=== PATIENT | female | born 1950 | race Hispanic/Latino ===

== ENCOUNTER 2019-04-21 10:41 | Inpatient (IN) | payer MEDICARE ==
[~2019-04-21] VITALS: Ht 157.5 cm; Wt 64.5 kg
[2019-04-21 11:04] LABS: BASOPHILS % (AUTO) 0.2 % (0.0-5.0); EOSINOPHILS % (AUTO) 0.1 % (0.0-8.0); HEMATOCRIT 45.4 % (36-48); LYMPHOCYTES % (AUTO) 9.1 % (21.0-51.0); MEAN CORPUSCULAR HEMOGLOBIN 29.5 pg (27.0-33.0); MEAN CORPUSCULAR HGB CONC 35.1 g/dL (32.0-36.0); MEAN CORPUSCULAR VOLUME 83.9 fL (79-99); MONOCYTES % (AUTO) 8.6 % (3.0-13.0); PLATELET COUNT (AUTO) 219 K/uL (130-400); RED BLOOD CELL COUNT(AUTO) 5.41 MIL/uL (4.00-5.50); RED CELL DISTRIBUTION WIDTH 13.3 % (11.0-15.5); WHITE BLOOD COUNT (AUTO) 6.6 K/uL (4.8-10.8)
[2019-04-21] MEDS ORDERED: ONDANSETRON HCL 4 MG/2 ML VIAL ONE ×2 (11:07→23:00)
[2019-04-21 11:11] LABS: AMYLASE 29 U/L (25-115)
[2019-04-21 11:22] LABS: ALANINE AMINOTRANSFERASE 16 U/L (12-78); ALBUMIN 3.7 g/dL (3.5-5.0); ASPARTATE AMINOTRANSFERASE 22 U/L (10-37); BILIRUBIN,TOTAL 0.7 mg/dL (0.2-1.0); CARBON DIOXIDE 15 mmol/L (21-32); CHLORIDE 89 mmol/L (101-111); CREATINE KINASE, TOTAL 95 U/L (21-232); CREATININE 3.9 mg/dL (0.5-1.5); GLOMERULAR FILTR. RATE CALC 12 mL/min (>60); GLUCOSE,RANDOM 176 mg/dL (70-105); POTASSIUM 3.3 mmol/L (3.5-5.1); SODIUM SERUM 129 mmol/L (136-145); TOTAL PROTEIN, SERUM 8.9 g/dL (6.0-8.3); UREA NITROGEN, BLOOD 60 mg/dL (7-18)
[2019-04-21 11:23] LABS: LIPASE < 50 U/L (114-286)
[2019-04-21] MEDS ORDERED: HYOSCYAMINE SULFATE 0.125 MG TAB.SUBL SL ONE (11:26)
[2019-04-21] MEDS ORDERED: SODIUM CHLORIDE 0.9% 1000ML 1,000 ML IV ONE ×2 (11:26→12:00)
[2019-04-21 11:33] LABS: INR 0.9 (0.85-1.15); PARTIAL THROMBOPLASTIN TIME 30.1 SEC (26.3-35.5); PROTHROMBIN TIME 9.5 SEC (9.6-11.6)
[2019-04-21 12:23] LABS: BAND NEUTROPHILS % (MANUAL) 14 % (0-2); LYMPHOCYTES % (MANUAL) 17 % (22-44); MAN.DIFF COMMENT-IMPRESSION MANUAL DIFFERENTIAL; MONOCYTES % (MANUAL) 14 % (2-9); PLATELET MORPHOLOGY COMMENT ADEQUATE; SEGMENTED NEUTROPHILS % 55 % (40-70)
[2019-04-21] MEDS ORDERED: POTASSIUM CHLORIDE 20 MEQ ERTAB PO ONE (12:41)
[2019-04-21] MEDS ORDERED: LEVOFLOXACIN 500 MG/D5W 100 ML 100 ML ONE (13:17)
[2019-04-21] MEDS ORDERED: METRONIDAZOLE 500MG/100ML BAG 100 ML ONE (13:17)
[2019-04-21] MEDS: SODIUM CHLORIDE 0.9% 1000ML 1,000 ML IV SCH ×2 (14:15→22:15)
[2019-04-21] MEDS ORDERED: LOPERAMIDE HCL 2 MG CAP PO ONE (14:33)
[2019-04-21] MEDS ORDERED: MORPHINE SULFATE 2 MG/ML 1ML SYG ONE (18:52)
[2019-04-21] MEDS ORDERED: MORPHINE SULFATE 2 MG/ML 1ML SYG IVP PRN (19:15)
[2019-04-21 22:13] VITALS: BP 117/68
[2019-04-21] MEDS: METRONIDAZOLE 500MG/100ML BAG 100 ML IVPB SCH (23:04)
[2019-04-21 23:45] VITALS: BP 117/75
[2019-04-22] MEDS ORDERED: ACETAMINOPHEN 325 MG TAB ONE (02:58)
[2019-04-22 04:00] VITALS: BP 119/69
[2019-04-22 05:31] LABS: MEAN CORPUSCULAR HEMOGLOBIN 29.4 pg (27.0-33.0); MEAN CORPUSCULAR VOLUME 83.9 fL (79-99); PLATELET COUNT (AUTO) 174 K/uL (130-400); RED BLOOD CELL COUNT(AUTO) 4.65 MIL/uL (4.00-5.50); RED CELL DISTRIBUTION WIDTH 12.9 % (11.0-15.5); WHITE BLOOD COUNT (AUTO) 6.7 K/uL (4.8-10.8)
[2019-04-22 05:42] LABS: CREATININE 2.4 mg/dL (0.5-1.5)
[2019-04-22 05:43] LABS: POTASSIUM 2.6 mmol/L (3.5-5.1)
--- NOTE | 2019-04-22 05:54 | NUR ---
DR. JAIMES CALLED TO HIS CELLPHONE TO [facility] VALUES FOR POTASSIUM AND SODIUM NO ANSWER
[2019-04-22] MEDS ORDERED: POTASSIUM CHLORIDE 10% ELIXIR 20 MEQ/15 ML UDCUP PO PRN (06:00)
[2019-04-22] MEDS: SODIUM CHLORIDE 0.9% 1000ML 1,000 ML IV SCH ×3 (06:15→20:25)
[2019-04-22] MEDS: ONDANSETRON HCL 4 MG/2 ML VIAL IVP PRN ×2 (06:31→13:52)
[2019-04-22] MEDS: LIDOCAINE HCL-MPF 1% 2ML VIAL IV PRN ×2 (06:31→17:05)
[2019-04-22] MEDS: METRONIDAZOLE 500MG/100ML BAG 100 ML IVPB SCH ×4 (06:31→13:50)
[2019-04-22] MEDS: POTASSIUM CHLORIDE 20MEQ/100ML 100 ML IV PRN ×3 (06:31→17:04)
[2019-04-22 08:00] VITALS: BP 128/69
[2019-04-22 11:39] VITALS: BP 117/74
--- NOTE | 2019-04-22 11:54 | NUR ---
DCP CM met with pt discussed dc plans. Pt is semi-independent prior to admission, lives at home with spouse. Has a shower chair and cane. Denies any other equipments/services. Pt feels safe to go back home, spouse able to assist with transportation and needs as necessary. DC plan to home once stable. CM to cont to follow up. Addendum: 04/22/19 at 1155 by DARSHAN OROSCO LVN CM Amended: Links added.
[2019-04-22 16:17] VITALS: BP 129/65
[2019-04-22 19:05] VITALS: BP 125/63
[2019-04-22] MEDS ORDERED: ONDANSETRON HCL 4 MG/2 ML VIAL IVP PRN (19:15)
[2019-04-22] MEDS ORDERED: FAMOTIDINE/PF 20 MG/2 ML VIAL IV SCH (21:00)
[2019-04-22] MEDS ORDERED: DIPHENOXYLATE HCL/ATROPINE 2.5/0.025 MG TAB PO SCH (21:00)
[2019-04-22] MEDS ORDERED: ZOLPIDEM TARTRATE 5 MG TAB ONE (22:35)
[2019-04-22] MEDS: ZOLPIDEM TARTRATE 5 MG TAB PO SCH (22:37)
[2019-04-22 23:33] VITALS: BP 133/68
[2019-04-23 03:10] VITALS: BP 115/73
[2019-04-23 05:07] LABS: HEMATOCRIT 40.4 % (36-48); MEAN CORPUSCULAR HEMOGLOBIN 29.2 pg (27.0-33.0); MEAN CORPUSCULAR HGB CONC 34.9 g/dL (32.0-36.0); MEAN CORPUSCULAR VOLUME 83.8 fL (79-99); PLATELET COUNT (AUTO) 216 K/uL (130-400); RED BLOOD CELL COUNT(AUTO) 4.82 MIL/uL (4.00-5.50); RED CELL DISTRIBUTION WIDTH 13.4 % (11.0-15.5); WHITE BLOOD COUNT (AUTO) 7.4 K/uL (4.8-10.8)
[2019-04-23 05:34] LABS: POTASSIUM 2.7 mmol/L (3.5-5.1)
[2019-04-23] MEDS: LIDOCAINE HCL-MPF 1% 2ML VIAL IV PRN ×2 (05:50→11:07)
[2019-04-23] MEDS: POTASSIUM CHLORIDE 20 MEQ ERTAB PO PRN ×4 (05:50→13:48)
[2019-04-23] MEDS: POTASSIUM CHLORIDE 20MEQ/100ML 100 ML IV PRN ×2 (05:50→11:08)
[2019-04-23] MEDS: SODIUM CHLORIDE 0.9% 1000ML 1,000 ML IV SCH ×3 (05:58→20:08)
--- NOTE | 2019-04-23 06:04 | NUR ---
Paged Dr. Tavarez regarding positive blood culture of gram negative rods. Pending call back
[2019-04-23 07:50] VITALS: BP 117/72
[2019-04-23] MEDS: FAMOTIDINE/PF 20 MG/2 ML VIAL IV SCH (08:39)
[2019-04-23] MEDS: DIPHENOXYLATE HCL/ATROPINE 2.5/0.025 MG TAB PO SCH ×4 (08:45→20:08)
[2019-04-23] MEDS ORDERED: LEVOFLOXACIN 250 MG/D5W 50ML 50 ML IVPB SCH (09:00)
[2019-04-23 12:01] VITALS: BP 122/74
[2019-04-23] MEDS: CEFTRIAXONE SODIUM 1 GM IVP SCH (14:40)
[2019-04-23 16:40] VITALS: BP 115/53
[2019-04-23 19:10] VITALS: BP 115/70
[2019-04-23] MEDS: ZOLPIDEM TARTRATE 5 MG TAB PO SCH (20:08)
[2019-04-23 23:35] VITALS: BP 124/70
[2019-04-24 03:10] VITALS: BP 120/63
[2019-04-24 05:02] LABS: MEAN CORPUSCULAR HEMOGLOBIN 29.1 pg (27.0-33.0); MEAN CORPUSCULAR HGB CONC 34.6 g/dL (32.0-36.0); MEAN CORPUSCULAR VOLUME 84.3 fL (79-99); PLATELET COUNT (AUTO) 180 K/uL (130-400); RED BLOOD CELL COUNT(AUTO) 4.27 MIL/uL (4.00-5.50); RED CELL DISTRIBUTION WIDTH 13.2 % (11.0-15.5); WHITE BLOOD COUNT (AUTO) 8.7 K/uL (4.8-10.8)
[2019-04-24 05:31] LABS: ALBUMIN 2.4 g/dL (3.5-5.0); BILIRUBIN,TOTAL 0.4 mg/dL (0.2-1.0); CREATININE 1.2 mg/dL (0.5-1.5); MAGNESIUM 1.9 mg/dL (1.80-2.40); POTASSIUM 3.3 mmol/L (3.5-5.1); TOTAL PROTEIN, SERUM 6.1 g/dL (6.0-8.3)
[2019-04-24] MEDS: POTASSIUM CHLORIDE 20 MEQ ERTAB PO PRN ×3 (05:52→12:30)
[2019-04-24] MEDS: SODIUM CHLORIDE 0.9% 1000ML 1,000 ML IV SCH ×2 (05:52→15:31)
[2019-04-24 08:00] VITALS: BP 125/71
[2019-04-24] MEDS: DIPHENOXYLATE HCL/ATROPINE 2.5/0.025 MG TAB PO SCH ×3 (09:22→21:30)
[2019-04-24] MEDS: FAMOTIDINE/PF 20 MG/2 ML VIAL IV SCH (09:23)
--- NOTE | 2019-04-24 10:48 | NUR ---
CHARGE NURSE HARRY SKINNER PAGED DR. JAIMES REGARDING POSITIVE BLOOD CULTURES FOR SALMONELLA. NO RESPONSE AT THIS TIME.
[2019-04-24 11:39] VITALS: BP 114/56
[2019-04-24] MEDS ORDERED: SIMV-43 PO (11:39)
[2019-04-24] MEDS ORDERED: LISI-617 PO (11:39)
[2019-04-24] MEDS: CEFTRIAXONE SODIUM 1 GM IVP SCH (15:30)
[2019-04-24] MEDS: ACETAMINOPHEN 325 MG TAB PO PRN (16:16)
[2019-04-24 17:23] VITALS: BP 126/66
[2019-04-24 19:57] VITALS: BP 115/61
[2019-04-24] MEDS: ZOLPIDEM TARTRATE 5 MG TAB PO SCH (21:30)
[2019-04-24 23:35] VITALS: BP 130/60
[2019-04-25] MEDS: SODIUM CHLORIDE 0.9% 1000ML 1,000 ML IV SCH ×2 (01:58→20:52)
[2019-04-25 04:00] VITALS: BP 115/52
[2019-04-25 06:16] LABS: POTASSIUM 3.8 mmol/L (3.5-5.1)
[2019-04-25] MEDS: POTASSIUM CHLORIDE 20 MEQ ERTAB PO PRN ×2 (06:24→08:46)
[2019-04-25 08:00] VITALS: BP 133/73
[2019-04-25] MEDS: DIPHENOXYLATE HCL/ATROPINE 2.5/0.025 MG TAB PO SCH ×3 (08:46→20:52)
[2019-04-25] MEDS: FAMOTIDINE/PF 20 MG/2 ML VIAL IV SCH (08:46)
[2019-04-25 08:51] LABS: HEMATOCRIT 34.9 % (36-48); MEAN CORPUSCULAR HEMOGLOBIN 29.1 pg (27.0-33.0); MEAN CORPUSCULAR HGB CONC 34.2 g/dL (32.0-36.0); MEAN CORPUSCULAR VOLUME 85.1 fL (79-99); PLATELET COUNT (AUTO) 203 K/uL (130-400); RED CELL DISTRIBUTION WIDTH 13.3 % (11.0-15.5)
[2019-04-25 11:00] VITALS: BP 136/71
[2019-04-25] MEDS ORDERED: LOPERAMIDE HCL 2 MG CAP PO SCH (12:15)
[2019-04-25] MEDS: ACETAMINOPHEN 325 MG TAB PO PRN (14:08)
[2019-04-25] MEDS: CEFTRIAXONE SODIUM 1 GM IVP SCH (14:52)
[2019-04-25 16:00] VITALS: BP 135/71
[2019-04-25 20:00] VITALS: BP 146/65
[2019-04-25] MEDS: ZOLPIDEM TARTRATE 5 MG TAB PO SCH (20:52)
[2019-04-26] VITALS (7 sets, daily range): BP systolic 125–150; BP diastolic 61–80
[2019-04-26 01:05] LABS: APPEARANCE,URINE Clear (CLEAR); BILIRUBIN,URINE Negative (NEGATIVE); COLOR,URINE Yellow (YELLOW); GLUCOSE, URINE (UA) Negative (NEGATIVE); KETONES,URINE Negative (NEGATIVE); LEUKOCYTE ESTERASE ,URINE Negative (NEGATIVE); NITRATE,URINE Negative (NEGATIVE); OCCULT BLOOD,URINE Negative (NEGATIVE); PH,URINE 5.5 (5.0-8.0); PROTEIN,URINE Negative (NEGATIVE); UROBILINOGEN,URINE 0.2 mg/dL (0.2-1.0)
[2019-04-26] MEDS: DIPHENOXYLATE HCL/ATROPINE 2.5/0.025 MG TAB PO SCH ×3 (08:35→21:00)
[2019-04-26] MEDS: FAMOTIDINE/PF 20 MG/2 ML VIAL IV SCH (08:35)
[2019-04-26 08:38] LABS: POTASSIUM 3.7 mmol/L (3.5-5.1)
[2019-04-26 08:43] LABS: HEMATOCRIT 35.2 % (36-48); MEAN CORPUSCULAR HEMOGLOBIN 29.1 pg (27.0-33.0); MEAN CORPUSCULAR HGB CONC 34.1 g/dL (32.0-36.0); MEAN CORPUSCULAR VOLUME 85.4 fL (79-99); PLATELET COUNT (AUTO) 219 K/uL (130-400); RED BLOOD CELL COUNT(AUTO) 4.12 MIL/uL (4.00-5.50); RED CELL DISTRIBUTION WIDTH 13.3 % (11.0-15.5); WHITE BLOOD COUNT (AUTO) 10.5 K/uL (4.8-10.8)
[2019-04-26 10:16] LABS: CREATININE 0.9 mg/dL (0.5-1.5)
[2019-04-26] MEDS: POTASSIUM CHLORIDE 20 MEQ ERTAB PO PRN ×2 (16:12→18:23)
[2019-04-26] MEDS: LOPERAMIDE HCL 2 MG CAP PO PRN ×2 (16:12→21:34)
[2019-04-26] MEDS: CEFTRIAXONE SODIUM 1 GM IVP SCH (16:12)
[2019-04-26] MEDS: ZOLPIDEM TARTRATE 5 MG TAB PO SCH (21:34)
[2019-04-26] MEDS: SODIUM CHLORIDE 0.9% 1000ML 1,000 ML IV SCH (21:37)
[2019-04-27 00:09] VITALS: BP 150/69
[2019-04-27 04:07] VITALS: BP 123/68
[2019-04-27 07:00] VITALS: BP 134/71
[2019-04-27] MEDS: DIPHENOXYLATE HCL/ATROPINE 2.5/0.025 MG TAB PO SCH ×2 (09:50→14:14)
[2019-04-27] MEDS: FAMOTIDINE/PF 20 MG/2 ML VIAL IV SCH (09:50)
[2019-04-27 12:03] VITALS: BP 126/71
[2019-04-27] MEDS: CEFTRIAXONE SODIUM 1 GM IVP SCH (14:15)
--- NOTE | 2019-04-27 16:34 | NUR ---
DISCHARGE INSTRUCTIONS GIVEN. ALL QUESTIONS ANSWERED. PATIENT TO FOLLOW UP WITH DR. JAIMES AND DR. PADGETT. PATIENT INSTRUCTED TO HAVE PRESCRIPTIONS FILLED FOR LEVAQUIN. IV DISCONTINUED WITH INNER CANNULA INTACT.
== END 2019-04-27 17:00 | disposition home or self-care (01) | DRG 871 ==
LOC: EDH 10:41 → EDHIP 13:00 → OBSVTOIN 13:00 → EDHIP 16:10 → 3BH 21:46
PROVIDERS: ADMIT Internal Medicine; ATTEND Internal Medicine
DX: A02.1 Salmonella sepsis (principal); N17.0 Acute kidney failure with tubular necrosis; E87.1 Hypo-osmolality and hyponatremia; A02.0 Salmonella enteritis; A09 Infectious gastroenteritis and colitis, unspecified; G47.00 Insomnia, unspecified; E87.6 Hypokalemia; K57.90 Diverticulosis of intestine, part unspecified, without perforation or abscess without bleeding
CPT/HCPCS: 36415; 74176; 80048; 80053; 81003; 82150; 82270; 82550; 83630; 83690; 83735; 84484; 85025; 85027; 85610; 85730; 87040; 87046; 87077; 87177; 87186; 87324; 87804; 93005; G0378; J0696; J1956; J2405; J3480; J3490; J7030

== ENCOUNTER → 2024-04-24 | Outpatient (CLI) | payer OTHER ==
[~2024-04-24] MED LIST: LISI5TAB21 PO; SIMV-43 PO
== END | disposition home or self-care (01) ==
LOC: RAH 13:08
PROVIDERS: ATTEND Internal Medicine Cardiovascular Disease
DX: Z13.6 Encounter for screening for cardiovascular disorders (principal)
CPT/HCPCS: 75571

== ENCOUNTER 2025-01-27 13:18 | Emergency (ER) | payer MEDICARE, OTHER ==
[~2025-01-27] VITALS: Ht 154.9 cm; Wt 70.8 kg
--- NOTE | 2025-01-27 13:42 | EKG ---
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
--- NOTE | 2025-01-27 13:44 | ERN ---
General Chief Complaint: Abdominal Pain Stated Complaint: ABDOMINAL PAIN, BACK PAIN Time Seen by MD: 13:20 Source: patient History of Present Illness Initial Comments Patient is a 74-year-old female coming in complaining of lower abdominal discomfort as well in his upper back pain. She states that the lower down abdomen has been tender for two days. She does has a history of diverticulosis. ALong with this patient states that she has a family history of cardiac issues in his also worried about that. Allergies: Coded Allergies: No Known Drug Allergies (Verified Allergy, Unknown, 04/21/19) Home Meds Reported Medications Simvastatin (Simvastatin) 20 Mg Tablet, 20 MG PO HS, TAB 04/24/19 Lisinopril (Lisinopril) 5 Mg Tablet, 5 MG PO AM, TAB 04/24/19 Past Medical History Past Medical History: High Cholesterol, Hypertension Past Surgical History: Other Surgical History Other: ANAL FISTULA ROS Dictation CONSTITUTIONAL: NO CHILLS, NO FEVER, NO WEAKNESS, NO DIAPHORESIS, NO MALAISE. HEAD/FACE: NO SIGNS OF TRAUMA. EENT: NO EYE PAIN, NO BLURRED VISION, NO TEARING, NO DOUBLE VISION, NO EAR CHAPARRITA N, NO EAR DISCHARGE, NO NOSE PAIN, NO NASAL CONGESTION, NO THROAT PAIN, NO THROAT SWELLING, NO MOUTH PAIN. RESPIRATORY: NO COUGH, NO ORTHOPNEA, NO SOB, NO STRIDOR, NO WHEEZING. CARDIOVASCULAR: NO CHEST PAIN, NO EDEMA, NO PALPITATIONS, NO SYNCOPE. GASTROINTESTINAL/ABDOMINAL: NO ABDOMINAL PAIN, NO CONSTIPATION, NO DIARRHEA, NO NAUSEA, NO VOMITING. GENITOURINARY: NO ABNORMAL DISCHARGE, NO DYSURIA, NO FREQUENT URINATION, NO HEMATURIA. NO COMPLAINTS OF PAIN IN THE GENITALS. MUSCULOSKELETAL: NO BACK PAIN, NO GOUT, NO JOINT PAIN, NO JOINT SWELLING, NO MUSCLE PAIN, NO MUSCLE STIFFNESS, NO NECK PAIN. INTEGUMENTARY: NO CHANGE IN COLOR, NO CHANGE IN HAIR/NAILS, NO DRYNESS, NO LESION, NO LUMPS, NO RASH. NEUROLOGICAL/PSYCH: NO ANXIETY, NOT DEPRESSED, NO EMOTIONAL PROBLEM, NO HEADACHE, NO NUMBNESS, NO PRE-EXISTING DEFICIT, NO HISTORY OF SEIZURES, NO TREMORS, NO WEAKNESS. HEMATOLOGIC/LYMPHATIC: NOT ANEMIC, NO HISTORY OF BLOOD CLOTS, NO APPARENT BLEEDING, NO BRUISING, GLANDS NOT SWOLLEN. ALL SYSTEMS NEGATIVE, EXCEPT NOTED. Physical Exam Physical Exam Dictation VITAL SIGNS: REVIEWED. GENERAL APPEARANCE: ALERT, ORIENTED X3, NO ACUTE DISTRESS, OBESE. HEAD AND FACE: NON-TRAUMATIC. EYES: PERRL, PINK CONJUNCTIVAS, EYELID NO TRAUMA, ANTERIOR CHAMBER CLEAR. EARS: PINNAS INTACT AND NO SIGNS OF TRAUMA OR ERYTHEMA. EAR CANALS CLEAR AND NO DISCHARGE. TMS NO ERYTHEMA. NOSE: NO DISCHARGE, NO BLEEDING. OROPHARYNX: MOUTH NORMAL, TEETH NO CARIES, TONGUE PINK. PHARYNX CLEAR, NO ERYTHEMA. TONSILS NO EXUDATES, NO ABSCESSES NOTED. MUCOUS MEMBRANE MOIST. NECK: SUPPLE, NON-TENDER, NO THYROMEGALY, NO MASSES, NO JVD, NO BRUITS. BREAST: DEFERRED. CHEST: NO TENDERNESS, NO CREPITUS, NO PARADOXICAL MOVEMENT, NO RETRACTIONS. LUNGS: CLEAR, WELL-VENTILATED, SYMMETRIC, NO RALES, NO WHEEZING, NO RHONCHI, NO STRIDOR, GOOD BREATH SOUNDS BILATERALLY. HEART: REGULAR RATE, REGULAR RHYTHM, NO MURMUR, NO GALLOPS. VASCULAR: NO PERIPHERAL EDEMA. ABDOMEN: SOFT, POSITIVE BOWEL SOUNDS, NONDISTENDED, NO GUARDING, NONTENDER, NO REBOUND, NO MASSES NO HEPATOMEGALY, NO SPLENOMEGALY, NO GARCIA'S SIGN, NO HERNIAS. RECTAL: DEFERRED. GENITAL: DEFERRED. NEUROLOGICAL: NORMAL SPEECH, GROSS MOTOR FUNCTION INTACT, GROSS SENSORY FUNCTION INTACT. MUSCULOSKELETAL: NECK NONTENDER, FULL RANGE OF MOTION, BACK NONTENDER, FULL RANGE OF MOTION. EXTREMITIES: NONTENDER, FULL RANGE OF MOTION. SKIN: COLOR PINK, DRY, NO TURGOR, NO RASH, NO LACERATIONS, NO ABRASIONS, NO CONTUSIONS. LYMPHATICS: DEFERRED. Results Laboratory and Microbiology Lab and Micro Result Laboratory Tests Test 01/27/25 14:25 01/27/25 17:52 White Blood Count 8.1 K/uL (4.8-10.8) Red Blood Count 4.14 MIL/uL (4.00-5.50) Hemoglobin 13.7 g/dL (12.0-16.0) Hematocrit 41.7 % (36-48) Mean Corpuscular Volume 100.7 fL (79-99) H Mean Corpuscular Hemoglobin 33.1 pg (27.0-33.0) H Mean Corpuscular Hemoglobin Concent 32.9 g/dL (32.0-36.0) Red Cell Distribution Width 13.7 % (11.0-15.5) Platelet Count 184 K/uL (130-400) Mean Platelet Volume 10.0 fL (7.5-10.5) Immature Granulocyte % (Auto) 0.2 % (0-1) Neutrophils (%) (Auto) 54.2 % (40.0-77.0) Lymphocytes (%) (Auto) 35.8 % (21.0-51.0) Monocytes (%) (Auto) 7.9 % (3.0-13.0) Eosinophils (%) (Auto) 1.4 % (0.0-8.0) Basophils (%) (Auto) 0.5 % (0.0-5.0) Neutrophils # (Auto) 4.4 K/uL (1.8-7.7) Lymphocytes # (Auto) 2.9 K/uL (1.0-4.8) Monocytes # (Auto) 0.6 K/uL (0.1-1.0) Eosinophils # (Auto) 0.11 K/uL (0.00-0.70) Basophils # (Auto) 0.04 K/uL (0.00-0.20) Absolute Immature Granulocyte (auto 0.02 K/uL (0-1) Nucleated Red Blood Cells 0.0 % (0.0-0.19) Sodium Level 141 mmol/L (136-145) Potassium Level 4.3 mmol/L (3.5-5.1) Chloride Level 103 mmol/L (101-111) Carbon Dioxide Level 31 mmol/L (21-32) Blood Urea Nitrogen 18 mg/dL (7-18) Creatinine 0.7 mg/dL (0.5-1.0) Glomerular Filtration Rate Calc 91 mL/min (>90) Random Glucose 88 mg/dL (70-105) Total Calcium 9.5 mg/dL (8.5-10.1) Troponin I High Sensitivity 34 ng/L (4-50) Urine Color LIGHT-YELLOW (YELLOW) Urine Appearance CLEAR (CLEAR) Urine pH 7.0 (5.0-8.0) Urine Specific [place] 1.012 (1.001-1.031) Urine Protein NEGATIVE mg/dL (NEGATIVE) Urine Glucose (UA) NEGATIVE mg/dL (NEGATIVE) Urine Ketones NEGATIVE mg/dL (NEGATIVE) Urine Occult Blood NEGATIVE (NEGATIVE) Urine Nitrate NEGATIVE (NEGATIVE) Urine Bilirubin NEGATIVE mg/dL (NEGATIVE) Urine Urobilinogen 0.2 mg/dL (0.2-1.0) Urine Leukocyte Esterase 500 [place]/uL (NEGATIVE) H Urine RBC 2-5 /HPF (0-1) H Urine WBC 11-25 /HPF (0-1) H Urine Squamous Epithelial Cells FEW /HPF (0-2) Urine Non-Squamous Epithelial Cells 3 /HPF (0-2) Urine Bacteria RARE /HPF (None Seen) Labs Reviewed?: Yes EKG/XRAY/US/CT/MRI EKG Comment 01/27/2025 TIME 1:38 P.M. VENTRICULAR RATE 65 SINUS RHYTHM NM [address] WAVE ELEVATION OR DEPRESSION CT Scan Comment [place] [id number] [place] [id number] IMAGING REPORT Signed PATIENT: IRVIN HEMPHILL MR#: [id number] : 1950 SEX: F AGE: 74 LOCATION: [facility] ORDER 23 STATUS: REG REPORT#: [id number] SERVICE 22 REASON: llq pain ORDERING PHYSICIAN: ALLI BOSTON MD PROCEDURE: ABD PEL WO - CT ABDOMEN/PELVIS W/O CONTRAST EXAM: CT Abdomen and Pelvis Without IV contrast CLINICAL HISTORY: llq pain TECHNIQUE: Axial computed tomography images of the abdomen and pelvis without intravenous contrast. CONTRAST: No IV contrast. COMPARISON: None provided. FINDINGS: LUNG BASES: The lung bases appear clear. No pleural effusions are seen. LIVER: Unremarkable. GALLBLADDER AND BILE DUCTS: The gallbladder appears within normal limits. No radioopaque gallstones are seen. No biliary ductal dilatation is evident. PANCREAS: Unremarkable. SPLEEN: Unremarkable. ADRENAL GLANDS: Unremarkable. KIDNEYS, URETERS, AND BLADDER: The kidneys appear within normal limits. There is no hydronephrosis or hydroureter. No urinary calculi are seen. STOMACH AND BOWEL: Unremarkable appearance of the stomach and bowel. No evidence of bowel obstruction. No evidence suggesting enteritis or colitis. Colonic diverticula without evidence of diverticulitis. APPENDIX: Normal appendix. PERITONEUM: No free fluid. No free air. LYMPH NODES: No lymphadenopathy is evident. REPRODUCTIVE: Unremarkable as visualized. VASCULATURE: No evidence of abdominal aortic aneurysm. Atherosclerotic calcifications in the aorta. BONES: No aggressive appearing osseous lesion. No acute osseous pathology evident. IMPRESSION: No bowel obstruction or inflammation. Diverticulosis without evidence of diverticulitis. Normal appendix. No urinary calculi. No hydronephrosis. No calcified gallstones. No free air, free fluid or fluid collection. /[place] DICTATED BY: TOPHER ALEMAN MD DATE: 01/27/251941 ELECTRONICALLY SIGNED BY: TOPHER ALEMAN MD DATE: 01/27/251941 [facility] MDM: DIFFERENTIAL DIAGNOSIS: Abdominal pain, diverticulosis, constipation, RATIONALE: TESTS CONSIDERED AND ORDERED SECONDARY TO SHARED DECISION MAKING I NCLUDE: PREVIOUS OUTSIDE RECORDS REVIEWED: OLD ER VISITS. RISK OF COMPLICATION AND/OR MORBIDITY OR MORTALITY OF PATIENT MANAGEMENT: NONE MEDICATIONS-PER MEDICATION RECONCILIATION NEED FOR HOSPITALIZATION: PATIENT DOES NOT MEET CRITERIA FOR HOSPITALIZATION. Patient is a 74-year-old female coming in to be evaluated for abdominal pain CT did not disclose anything new. Patient does state she has a history of diverticulosis with a afraid that she might have something worse. On physical exam that has tenderness on right lower quadrant areas so CT needs to be performed laboratory workup with a normal limits. Patient will be discharged in stable condition with a diagnosis of diverticulosis. ED Course Orders Procedure Category Date Status Time Cbc With Differential LAB 01/27/25 Complete 13:30 Basic Metabolic Panel LAB 01/27/25 Complete 13:30 Urinalysis LAB 01/27/25 Complete W/Microscopic 13:30 12 Lead Ekg Tracing- EKG 01/27/25 Complete Technical 13:30 Troponin I High LAB 01/27/25 Complete Sensitivity 13:30 Ct Abdomen/Pelvis W/O CT 01/27/25 Resulted Contrast 17:23 Culture Urine JAMES 01/27/25 In Process 18:03 Vital Signs Date Time Temp Pulse Resp B/P (MAP) Pulse Ox O2 Delivery O2 Flow Rate FiO2 01/27/25 17:00 97.9 64 18 143/67 96 Room Air* 0 21 01/27/25 16:03 99.0 6 18 135/63 96 Room Air* 0 21 01/27/25 15:00 99.0 65 18 140/58 96 Room Air* 0 21 01/27/25 13:40 99.0 80 18 138/86 98 Room Air* 0 21 01/27/25 13:19 99.0 80 18 138/86 98 Room Air DX & DISP Disposition: Discharge Departure Impression: Primary Impression: Diverticulosis Condition: Stable Additional Instructions: FOLLOW-UP WITH PRIMARY CARE PROVIDER IN 1 TO 2 DAYS. TAKE MEDICATIONS DIRECTED HERE IN THE EMERGENCY ROOM. OKAY TO CONTINUE HOME MEDICATIONS UNLESS OTHERWISE DISCUSSED DURING YOUR VISIT IN THE EMERGENCY ROOM TODAY. RETURN TO YOUR NEAREST EMERGENCY ROOM IF SYMPTOMS WORSEN OR IF THERE IS NO IMPROVEMENT. CALL 911 IF YOU NEED IMMEDIATE ASSISTANCE. TAKE TYLENOL [id number] NEEDED AND IF NO CONTRAINDICATIONS ARE PRESENT. INCREASE ORAL HYDRATION. A WOUND CULTURE OR URINE CULTURE WAS ORDERED HERE IN THE EMERGENCY ROOM DEPARTMENT PLEASE FOLLOW-UP WITH PRIMARY CARE PROVIDER AND ADVISE THEM TO GET REPORTS FROM OUR FACILITY. IF YOU HAD ANY FAB WRAP/SPLINTS THAT WERE APPLIED HERE, PLEASE DO NOT REMOVE THEM UNTIL YOU SEE YOUR PRIMARY CARE OR SPECIALTY. Referrals: Referrals: SRIRAM JAIMES MD (PCP) Time of Disposition: 18:47 ALLI BOSTON MD Jan 27, 2025 13:44
[2025-01-27 14:39] LABS: IMMATURE GRANULOCYTE ABSOLUTE 0.02 K/uL (0-1); NUCLEATED RED BLOOD CELLS 0.0 % (0.0-0.19); PLATELET COUNT (AUTO) 184 K/uL (130-400); RED BLOOD CELL COUNT(AUTO) 4.14 MIL/uL (4.00-5.50); RED CELL DISTRIBUTION WIDTH 13.7 % (11.0-15.5); WHITE BLOOD COUNT (AUTO) 8.1 K/uL (4.8-10.8)
[2025-01-27 14:51] LABS: CREATININE 0.7 mg/dL (0.5-1.0); GLOMERULAR FILTR. RATE CALC 91.0 mL/min (>90); GLUCOSE,RANDOM 88.0 mg/dL (70-105); SODIUM SERUM 141.0 mmol/L (136-145); UREA NITROGEN, BLOOD 18.0 mg/dL (7-18)
[2025-01-27 18:02] LABS: APPEARANCE,URINE CLEAR (CLEAR); GLUCOSE, URINE (UA) NEGATIVE (NEGATIVE); LEUKOCYTE ESTERASE ,URINE 500 Leu/uL (NEGATIVE); NITRATE,URINE NEGATIVE (NEGATIVE); NON-SQUAMOUS EPITHELIAL CELL 3 /HPF (0-2); OCCULT BLOOD,URINE NEGATIVE (NEGATIVE); SQUAMOUS EPITHELIAL CELL,UR FEW /HPF (0-2)
--- NOTE | 2025-01-27 18:43 | HMCIMG ---
EXAM: CT Abdomen and Pelvis Without IV contrast CLINICAL HISTORY: llq pain TECHNIQUE: Axial computed tomography images of the abdomen and pelvis without intravenous contrast. CONTRAST: No IV contrast. COMPARISON: None provided. FINDINGS: LUNG BASES: The lung bases appear clear. No pleural effusions are seen. LIVER: Unremarkable. GALLBLADDER AND BILE DUCTS: The gallbladder appears within normal limits. No radioopaque gallstones are seen. No biliary ductal dilatation is evident. PANCREAS: Unremarkable. SPLEEN: Unremarkable. ADRENAL GLANDS: Unremarkable. KIDNEYS, URETERS, AND BLADDER: The kidneys appear within normal limits. There is no hydronephrosis or hydroureter. No urinary calculi are seen. STOMACH AND BOWEL: Unremarkable appearance of the stomach and bowel. No evidence of bowel obstruction. No evidence suggesting enteritis or colitis. Colonic diverticula without evidence of diverticulitis. APPENDIX: Normal appendix. PERITONEUM: No free fluid. No free air. LYMPH NODES: No lymphadenopathy is evident. REPRODUCTIVE: Unremarkable as visualized. VASCULATURE: No evidence of abdominal aortic aneurysm. Atherosclerotic calcifications in the aorta. BONES: No aggressive appearing osseous lesion. No acute osseous pathology evident. IMPRESSION: No bowel obstruction or inflammation. Diverticulosis without evidence of diverticulitis. Normal appendix. No urinary calculi. No hydronephrosis. No calcified gallstones. No free air, free fluid or fluid collection. /[place]
[2025-01-27 19:40] VITALS: BP 167/70; PULSE 65; RESP 18; TEMP 97.9; O2SAT 98
== END 2025-01-27 19:51 | disposition home or self-care (01) ==
LOC: EDH 13:18
DX: K57.30 Diverticulosis of large intestine without perforation or abscess without bleeding (principal); E78.00 Pure hypercholesterolemia, unspecified; I10 Essential (primary) hypertension; Z79.899 Other long term (current) drug therapy
CPT/HCPCS: 36415; 74176; 80048; 81001; 84484; 85025; 87086; 93005; 99284